=== PATIENT | male | born 2005 | race Caucasian/White ===

== ENCOUNTER 2023-09-23 18:09 | Emergency (ER) | payer BC ==
[2023-09-23] MEDS ORDERED: Ketorolac Tromethamine 30 MG/ML VIAL ONE (18:55)
[2023-09-23 19:33] LABS: #Eosinphils 0.1 10x3/uL (0.0-0.5); #Monocytes 0.8 10x3/uL (0.0-1.1); #Neutrophils 10.8 10x3/uL (1.5-8.4); %Basophils 0.3 % (0.0-2.0); %Eosinophils 0.6 % (0.0-6.0); %Lymphocytes 18.9 % (18.0-47.0); %Monocytes 5.5 % (0.0-10.0); %Neutrophils 74.4 % (40.0-75.0); Hematocrit 42.7 % (38.8-50.0); Hemoglobin 14.5 g/dL (13.5-17.5); Mean Corpuscular Hemoglobin 28.9 pg (27.0-33.0); Mean Corpuscular Volume 85.2 fl (81.2-95.1); Platelet Count 252 10x3/uL (150-450); RBC Distribution Width 13.2 % (11.5-14.5); Red Blood Cell (RBC) Count 5.01 10x6/uL (4.32-5.72); White Blood Cell (WBC) Count 14.5 10x3/uL (3.5-10.5)
[2023-09-23 19:51] LABS: ALT (SGPT) 14 U/L (8-55); AST (SGOT) 19 U/L (10-45); Albumin 4.1 g/dL (3.5-5.0); Alkaline Phosphatase 71 U/L (50-130); Anion Gap 14 mmol/L (10-20); BUN (Urea Nitrogen) 14 mg/dL (8.4-21.0); Bilirubin, Total 0.5 mg/dL (0.2-1.2); Calc. Creatinine Clearance 0 mL/min (70-130); Calcium 9.2 mg/dL (7.8-10.44); Carbon Dioxide 28 mmol/L (22-29); Chloride 100 mmol/L (98-107); Estimated GFR 113; Globulin 3.1 g/dL (2.4-3.5); Glucose 88 mg/dL (70-105); Lipase 7 U/L (8-78); Potassium 3.9 mmol/L (3.5-5.1); Protein, Total 7.2 g/dL (6.0-8.3); Sodium 138 mmol/L (136-145)
[2023-09-23 19:59] LABS: Bilirubin Neg (Negative); Blood, Urine 10 (Negative); Clarity Clear (Clear); Glucose, Urine (Dipstick) Normal (Negative); Ketone, Urine Negative (Negative); Leukocyte Negative (Negative); Nitrite Negative (Negative); Protein, Urine (Dipstick) Negative (Neg-Trace); Specific Gravity, Urine 1.015 (1.005-1.030); Urobilinogen Normal mg/dL (Less than 2)
[2023-09-23 20:20] LABS: SARS-CoV-2 NAA Rapid Test Not Detected (NotDetected)
[2023-09-23 20:58] LABS: Bacteria/HPF None Seen HPF (None Seen); CAUTI Indications for Culture Pelvic or flank pain; Squamous Epithelial None Seen HPF (0-3); WBC/HPF 0-3 HPF (0-3)
[2023-09-23 20:59] LABS: Urine Culture Reflex No No
== END 2023-09-23 21:56 | disposition home or self-care (01) ==
LOC: CSHERS 18:09
DX: R10.33 Periumbilical pain (principal); R05.9 Cough, unspecified; Z20.822 Contact with and (suspected) exposure to COVID-19
CPT/HCPCS: 74177; 80053; 81001; 83690; 85025; 96374; J1885